=== PATIENT | female | born 1945 | race African-American/Black ===

== ENCOUNTER → 2021-11-03 | Day surgery (SDC) | payer MEDICARE, OTHER ==
[~2021-11-03] VITALS: Ht 154.9 cm; Wt 88.5 kg
[~2021-11-03] MED LIST: AMARYL4 MG PO; ASPIRIN81 MG PO; BACLOFEN 10MG T10 MG PO; CARDIZEM CD120 MG PO; CERTAGEN1 EACH PO; CHILDREN'S ASPI81 MG PO; COLCRYS0.6 MG PO; CYANOCOBAL1000 MCG/1 IM; CYCLOBENZAPRINE10 MG PO; FEOSOL325 MG PO; HUMALOG100 UNIT/1 SQ; LANTUS **100 UNITS/ SC; LEVEMIR VI100 UNITS/ SQ; LOSARTAN-HCTZ1 EAC1 PO; NEURONTIN300 MG PO; NOVOLOG FL100 UNIT/1 SC; OS-CAL 500+D31 EACH PO; OXYCODONE HCL15 MG PO; PERCOCET 5-3251 EACH PO; PERCOCET 5/3251 TAB PO; PREDNISONE 20MG20 MG PO; PROZAC20 MG PO; RESTORIL15 MG PO; SYNTHROID100 MCG PO; VIT B12 PO; VIT D-3 PO; ZESTRIL5 M1 PO
[2021-11-03 10:36] LABS: HCT 37.8 % (37.0-47.0); HGB 12.2 g/dl (12.5-16.0); MCH 28.3 pg (25.0-31.0); MCHC 32.3 g/dL (32.0-36.0); MCV 87.7 fL (78.0-100.0); MPV 9.6 fL (6.0-9.5); RBC 4.31 M/uL (4.20-5.40); RDW 14.3 % (11.5-14.0); WBC 5.6 K/uL (4.0-10.5)
[2021-11-03 11:05] LABS: ALBUMIN 3.2 g/dL (3.4-5.0); BUN/CREAT RATIO (CALC) 21.1 RATIO; CREATININE 1.33 mg/dL (0.51-0.95); GLOBULIN (CALCULATION) 5.2 g/dL; POTASSIUM 3.9 mmol/L (3.5-5.1); TOTAL PROTEIN 8.4 g/dL (6.4-8.2)
== END | disposition home or self-care (01) ==
LOC: FAS 09:49
PROVIDERS: Surgery
DX: D50.0 Iron deficiency anemia secondary to blood loss (chronic) (principal); K63.5 Polyp of colon; K29.50 Unspecified chronic gastritis without bleeding; I10 Essential (primary) hypertension; E11.9 Type 2 diabetes mellitus without complications; Z79.82 Long term (current) use of aspirin; Z79.4 Long term (current) use of insulin; Z79.899 Other long term (current) drug therapy
CPT/HCPCS: 36415; 80053; 82962; J1610; J2704; J7120

== ENCOUNTER 2021-12-23 08:19 | Emergency (ER) | payer MEDICARE, OTHER ==
[2021-12-23 10:42] LABS: BASOPHIL 0.3 % (0-2); EOSINOPHIL 4.4 % (0-7); HCT 34.4 % (37.0-47.0); LYMPHOCYTE 23.7 % (15-48); MCH 28.9 pg (25.0-31.0); MCV 90.5 fL (78.0-100.0); MONOCYTE 7.4 % (0-12); MPV 9.1 fL (6.0-9.5); NEUTROPHIL 63.8 % (41-80); NRBC 0; PLT 279 K/uL (150-400); RDW 13.6 % (11.5-14.0)
[2021-12-23 10:59] LABS: INR 1.14 (0.9-1.2); PTT 28.8 SECONDS (24.4-34.7)
[2021-12-23 11:35] LABS: D-DIMER 0.74 ug/mLFEU (0.00-0.41)
[2021-12-23] MEDS ORDERED: NORCO 5-325 TA1 EACH PO (12:54)
[2021-12-23] MEDS ORDERED: ROBAXIN500 MG PO (12:56)
[2021-12-23 13:13] LABS: ALBUMIN 3.1 g/dL (3.4-5.0); BILIRUBIN - TOTAL 0.3 mg/dL (0.2-1.0); BUN/CREAT RATIO (CALC) 19.1 RATIO; CREATININE 1.31 mg/dL (0.51-0.95); GLOBULIN (CALCULATION) 4.6 g/dL; MAGNESIUM 2.3 mg/dL (1.8-2.4); POTASSIUM 4.4 mmol/L (3.5-5.1); TOTAL PROTEIN 7.7 g/dL (6.4-8.2)
== END 2021-12-23 17:12 | disposition home or self-care (01) ==
LOC: FER 08:19
PROVIDERS: Emergency Medicine
DX: M54.12 Radiculopathy, cervical region (principal)
CPT/HCPCS: 36415; 72125; 73060; 73090; 80053; 83735; 84145; 84443; 84484; 85025; 85379; 85610; 85730; 93005; J1170; J2405

== ENCOUNTER 2022-02-15 12:19 | Emergency (ER) | payer MEDICARE, OTHER ==
[~2022-02-15 12:19] MED LIST changes: +NORCO 5-325 TA1 EACH PO; +ROBAXIN500 MG PO
[2022-02-15] MEDS ORDERED: MEDROL 4MG DOSEP4 MG PO (14:02)
[2022-02-15] MEDS ORDERED: CYCLOBENZAPRINE10 MG PO (14:02)
== END 2022-02-15 14:11 | disposition home or self-care (01) ==
LOC: FER 12:19
DX: S39.012A Strain of muscle, fascia and tendon of lower back, initial encounter (principal); I10 Essential (primary) hypertension; X50.1XXA Overexertion from prolonged static or awkward postures, initial encounter
CPT/HCPCS: 99283; J1100